=== PATIENT | male | born 1990 | race Two or more races ===

== ENCOUNTER 2024-07-19 11:30 | Emergency (ER) | payer MEDICAID, SELFPAY ==
[2024-07-19 11:31] VITALS: BP 132/76
--- NOTE | 2024-07-19 12:19 | ED.GENMED ---
History of Present Illness
General
Chief Complaint: Musculo-Skeletal Complaint
Source: patient and family (Niece at bedside assisting with translation)
Exam Limitations: none
Time Seen by Provider: 07/19/24 11:39
Nursing documentation reviewed up to this point in time: agreed with
History of Present Illness
History of Present Illness:
Patient is a 33-year-old male presenting to the emergency department for evaluation of right ankle injury. Patient's niece is at bedside assisting with translation�[employer] customer service agent at this time. Patient reports last night he was playing a
soccer game when he jumped up and fell inverting his right ankle. He denies any head strike or LOC. He denies any other injury sustained. He describes pain in his right ankle, worse with ambulating. However that she has been able to bear weight
since the injury. He denies any numbness/tingling in right ankle/foot. No pain in right knee. No other concerns today.
Review of Systems
Review of Systems
Allergies reviewed?: Yes
All Other Systems: ROS reviewed and negative except as documented in HPI and ROS
Phy Exam
Physical Exam
Physical Exam:
Vitals: Patient's vital signs are stable. Afebrile
General: Patient is well appearing, no acute distress
Skin: Warm and dry, no rashes or lesions
Head: Normocephalic, atraumatic
Throat: Protecting airway
Neck: Normal ROM, no cervical spine tenderness
Cardiac: Regular rate
Pulm: No apparent respiratory distress
Abdomen: Nondistended
Extremities: Mild edema and ecchymosis of left ankle just inferior to left medial malleolus. No bony tenderness to the left medial or lateral malleolus. No tenderness of midfoot, hindfoot, or base of left fifth metatarsal. No calcaneal
tenderness. No tenderness at head of left fibula. Achilles intact. Full ability to dorsiflex/plantarflex at left ankle. Full range of motion in left knee without pain. Capillary refill WNL. Palpable DP pulse
Neuro: Grossly intact
Psychiatric: Normal affect.
Course
Orders/Labs/Results
Orders:
Orders
07/19/24 11:36
CR Ankle - Right Min 3 Views * Urgent
Comment:
Reason For Exam: injury, pain/swelling
07/19/24 12:15
Ortho Boot Right- Treatment ONCE
Short or tall?: Tall
Vital Signs
Initial and Last Documented VS:
Initial Vital Signs
Temp Pulse Resp BP Pulse Ox
97.6 F 90 16 132/76 98
07/19/24 11:31 07/19/24 11:31 07/19/24 11:31 07/19/24 11:31 07/19/24 11:31
Last Documented Vital Signs
Temp Pulse Resp BP Pulse Ox
97.6 F 90 16 132/76 98
07/19/24 11:31 07/19/24 11:31 07/19/24 11:31 07/19/24 11:31 07/19/24 11:31
MDM/Problems Addressed
Differential Diagnosis Includes:
Not limited to: Ankle sprain, ankle fracture, foot sprain, foot fracture, Achilles tendon rupture, etc.
MDM/Problems Addressed:
33-year-old male presenting with right ankle injury occurring last night while playing soccer. No head strike, LOC, or other associated injuries. Patient ambulatory with minimal pain. Vitals and physical exam as above.
X-ray of right ankle negative for fracture. No injury of foot or knee on physical exam. Suspect likely right ankle sprain. Will order CAM boot and advise rest, ice, elevation, ortho follow-up as needed. Information provided for a free clinic, as
well. Patient stable for discharge home.
Chronic conditions affecting care:
N/A
Acute Exacerbation and/or Progression of Chronic Illness:
N/A
*Radiology
Radiology exam reviewed: preliminary read by ED provider (Left ankle x-ray reviewed by me-no acute fracture) and radiology read reviewed
*Pulse Oximetry
Patient hypoxic: no
*EKG
Interpreted by ED Provider?: NA
*Olive Picker Interpretation
Rate: Olive Picker- N/A
*Critical Care Note
Total Time (30-74mins, 75-104mins- exclusive of procedures): Not Applicable
ED Attending Note
-
Portions of this chart may have been created with voice recognition software.� Occasional wrong word or��sound alike� substitutions may have occurred due to the inherent limitations of voice recognition software.
Discharge Plan
Departure
Patient Disposition: Home (Routine Discharge)
Date of Disposition: 07/19/24
Time of Disposition: 12:17
Patient with high blood pressure during this ER visit?: Yes
Condition: Good
Covid-19: Not Applicable
Discharge Problem:
Right ankle injury
Instructions: Ankle sprain - ED discharge instructions, BLOOD PRESSURE
Referrals:
[facility] [Outside]
Reji Victoria MD [Active] - Call in 1-3 days for appt
Activity Restrictions/Additional Instructions:
O�NG TO�PIQ YOKI OYOQDAGI QUYEN QILISHI/QIRISHISHI, O�NG OYOQDAGI O�ZIB SEAN�LMAYDIGAN O�G�RIQ, HOZIRGI BELGILARDA YO�YATISHEMANTH YONEDRA BOSHQA QO�SHISCOTT BILTALAT HERNÁNDEZBL[facility]ITAL[facility] SEAN�LIMIGA QAYTING.
- [place] andrewlinganidek � camacho yordam sean'limida o'tkazilgan to'pig'ingizning rentgenogrammasi o'tkir sinish belgilarini ko'rsatmadi. O'arsh hunter to'pig'i cho'zilgan sean'haris hunt.
- Keyingi 2 hafta davomida jason ortopedlar tomonidadat tozalanmaguncha o'ng oyog'ingizni etikda ushlab turishingiz kerak. O'ng to'pig'ingizni iloji boricha camacho-camacho muzlashda davom eting. Og'riq uchun kerak sean'lganda Tylenol va / yoki Motrinni qabul
qilishingiz mumkin. Og'irlikni ko'tarish faoliyatini cheklang, juan luiski jarohatlar davolanadi.
- Semptomlar davom etsa/yomonlashsa, keyingi baholash/boshqarish uchun ortopediya bilan kuzatish. Ortopediya sean'yicha aloqa ma'lumotlari yuqorida siz uchun taqdim etilgan.
Alomatlaringizni diqqat bilan kuzatib boring va quyen qanday o'tkir yomonlashuv / yangi alomatlar yoki boshqa tashvishlar bilan camacho yordam sean'limiga qayting.
Interventions
Interventions:
*Risk Screen - Suicide Last Done: 07/19/24 11:31
*General Assessment Last Done: 07/19/24 11:31
*ED COVID-19 Vaccine History Last Done: 07/19/24 11:31
*Nursing Disposition Last Done: 07/19/24 12:45
ED-Musculoskeletal Assessment Last Done: 07/19/24 12:44
Discharge Date and Time
Discharge Date/Time: 07/19/24 12:45
Print Language: LAO
== END 2024-07-19 12:45 | disposition home or self-care (01) ==
LOC: EMR 11:30
PROVIDERS: EMERGENCY PHYSICIAN Emergency Medicine
DX: S90.02XA Contusion of left ankle, initial encounter (principal); W19.XXXA Unspecified fall, initial encounter
CPT/HCPCS: 99283; 73610